=== PATIENT | female | born 1980 | race Hispanic/Latino ===

== ENCOUNTER 2024-08-18 17:50 | Emergency (ER) | payer OTHER ==
[~2024-08-18] VITALS: Ht 165.1 cm; Wt 72.6 kg
[2024-08-18 18:22] VITALS: BP 104/58; PULSE 77; RESP 18; TEMP 98.4; O2SAT 97
[2024-08-18] MEDS ORDERED: TORADOL ONE (19:49)
[2024-08-18] MEDS ORDERED: ROBAXIN PO ONE (19:49)
[2024-08-18] MEDS ORDERED: LIDODERM TP ONE (19:49)
[2024-08-18] MEDS: ROBAXIN PO STA (19:52)
[2024-08-18] MEDS: TORADOL IM STA (19:53)
[2024-08-18] MEDS: LIDODERM TP STA (19:53)
[2024-08-18 20:02] VITALS: BP 130/86; PULSE 76; RESP 18; TEMP 98.4; O2SAT 97
[2024-08-18] MEDS ORDERED: KETO10TA PO (20:07)
[2024-08-18] MEDS ORDERED: METH-621 PO (20:07)
[2024-08-18] MEDS ORDERED: LIDO700A19 TP (20:07)
== END 2024-08-18 20:08 | disposition home or self-care (01) ==
LOC: ER 17:50
DX: G89.29 Other chronic pain (principal); F17.210 Nicotine dependence, cigarettes, uncomplicated
CPT/HCPCS: 99283; 96372; J1885